=== PATIENT | female | born 1955 | race Caucasian/White ===

== ENCOUNTER 2020-10-21 12:35 | Emergency (ER) | payer MEDICARE, OTHER ==
--- NOTE | 2020-10-21 13:00 | EDM.PDOC ---
ED HPI GENERAL MEDICAL PROBLEM - General Chief Complaint: Neuro Symptoms/Deficits Stated Complaint: LIGHT HEADED, HIGH BP Time Seen by Provider: 10/21/20 13:00 Source of Information: Reports: Patient History Limitations: Reports: No Limitations - History of Present Illness INITIAL COMMENTS - FREE TEXT/NARRATIVE: 65-year-old female who reports that she awoke this morning around 8:00 and she felt somewhat dizzy and lightheaded when she got up. It seemed to be somewhat worse when she changed position and when she was walking. She reports that there was no room spinning to the dizziness but she just felt wobbly and unsteady. She reports that she could walk but she just felt off. There was no nausea or vomiting. There were no fevers or chills. She had no chest pain. There was no near syncope. She has been eating and drinking normally. There have been no fevers or chills. No nasal congestion. No ear pain. She did develop a dull ache in the top of her head that she would rated as a 3/10. It has been constant. That began at approximately 10 AM. She states that she does have a history of migraines and this headache is "no migraine". Around lunch, she was still feeling the symptoms and she had her son who was a basic responder check her blood pressure and her blood pressure was 170/80 and her son told her that she needed to come to the emergency department for evaluation. She has had no shortness of breath. There have been no sweats. She has had no dysuria or hematuria. She has been eating and drinking normally. She has no neck stiffness. She has had no localized area of weakness or numbness. No cough or sore throat. There are no other associated signs or symptoms. There are no other modifying factors. Onset: Today Duration: Constant (A.m.) Location: Reports: Head Quality: Reports: Ache, Dull Severity: Mild Improves with: Reports: Rest Worsens with: Reports: Other (Activity), Movement Context: Reports: Other (As above. She had no symptoms when she went to bed last night and she awoke with the symptoms today.) Associated Symptoms: Reports: Headaches Treatments [employer]: Reports: Other (see below) (Nothing.) - Related Data Allergies Allergy/AdvReac Type Severity Reaction Status Date / Time No Known Allergies Allergy Verified 10/21/20 12:51 Home Meds: Home Meds SUMAtriptan [Imitrex] 50 mg PO ASDIRECTED PRN 09/28/13 [History] Ascorbic Acid [Vitamin C] 1,000 mg PO DAILY 10/21/20 [History] Cholecalciferol (Vitamin D3) [Vitamin D3] 2,000 unit PO DAILY 10/21/20 [History] Meclizine [Antivert] 25 mg PO Q6H PRN #16 tab 10/21/20 [Rx] Multivitamin [Daily Multiple Vitamin] 1 each PO DAILY 10/21/20 [History] amLODIPine [Norvasc] 5 mg PO DAILY #30 tab 10/21/20 [Rx] Past Medical History Neurological History: Reports: Migraines - Past Surgical History GI Surgical History: Reports: Colonoscopy Female Surgical History: Reports: Hysterectomy Endocrine Surgical History: Reports: Thyroidectomy (Partial thyroidectomy) Oncologic Surgical History: Reports: Biopsy of Breast (Several breast biopsies) Social & Family History - Tobacco Use Tobacco Use Status *Q: Former Tobacco User (Quit smoking 50 years ago) - Alcohol Use Alcohol Use History: Yes Alcohol Use Frequency: Socially (She has an occasional glass of wine.) - Living Situation & Occupation Occupation: Retired ED ROS GENERAL - Review of Systems Review Of Systems: See Below Constitutional: Reports: No Symptoms HEENT: Reports: No Symptoms Respiratory: Reports: No Symptoms Cardiovascular: Reports: Lightheadedness Endocrine: Reports: No Symptoms GI/Abdominal: Reports: No Symptoms Musculoskeletal: Reports: No Symptoms Skin: Reports: No Symptoms Neurological: Reports: Dizziness Psychiatric: Reports: No Symptoms Hematologic/Lymphatic: Reports: No Symptoms Immunologic: Reports: No Symptoms ED EXAM, DIZZINESS - Physical Exam Exam: See Below Exam Limited By: No Limitations General Appearance: Alert, WD/WN, No Apparent Distress Eye Exam: Bilateral Eye: EOMI (No nystagmus), Normal Inspection (Sclera are anicteric), PERRL Ears: Normal External Exam, Hearing Grossly Normal Nose: Normal Inspection, Normal Mucosa, No Blood Throat/Mouth: Normal Inspection, Normal Lips, Normal Oropharynx, Normal Voice, No Airway Compromise Head Exam: Atraumatic, Normocephalic Neck: Normal Inspection, Supple, Non-Tender, Full Range of Motion Respiratory/Chest: No Respiratory Distress, Lungs Clear, Normal Breath Sounds, No Accessory Muscle Use, Chest Non-Tender Cardiovascular: Normal Peripheral Pulses, Regular Rate, Rhythm, No Edema, No Murmur GI/Abdominal: Normal Bowel Sounds, Soft, Non-Tender, No Mass Neurological: Alert, Normal Mood/Affect, Normal Dorsiflexion, CN II-XII Intact, Normal Plantar Flexion, No Motor/Sensory Deficits, Oriented x 3, Other (No pronator drift. No dysmetria. Cranial nerves II through XII are intact.) Back Exam: Normal Inspection, Full Range of Motion Extremities: Normal Inspection, Normal Range of Motion, Non-Tender, No Pedal Edema, Normal Capillary Refill Psychiatric: Normal Affect Skin Exam: Warm, Dry, Intact, Normal Color, No Rash #1 Interpretation EKG Date: 10/21/20 Time: 12:44 Rhythm: NSR (80) Rate (Beats/Min): 80 [place]: Normal P-Wave: Present QRS: Normal ST-T: Normal QT: Prolonged (Prolonged QTc) Comparison: NA - No Prior EKG Course - Vital Signs Last Recorded V/S: Last Vital Signs Temp 36.4 C 10/21/20 12:35 Pulse 73 10/21/20 12:35 Resp 18 10/21/20 12:35 BP 156/84 H 10/21/20 16:11 Pulse Ox 99 10/21/20 12:35 - Orders/Labs/Meds Orders: Active Orders 24 hr Category Date Time Status EKG Documentation Completion [RC] ASDIRECTED Care 10/21/20 13:21 Active Orthostatic Vital Signs [RC] ONETIME Care 10/21/20 13:22 Active Head wo Cont [CT] Stat Exams 10/21/20 13:20 Taken EKG 12 Lead [EK] Routine Ther 10/21/20 13:20 Ordered Labs: Laboratory Tests 10/21/20 10/21/20 10/21/20 Range/Units 12:55 12:55 12:55 WBC 6.0 (3.0-10.3) x10-3/uL RBC 4.59 (3.60-5.20) x10(6)uL Hgb 13.0 (11.4-15.5) g/dL Hct 39.6 (34.2-48.2) % MCV 86.4 (76.7-100.5) fL MCH 28.3 (23.9-33.9) pg MCHC 32.8 (31.9-34.8) g/dL RDW 13.7 (12.3-16.5) % Plt Count 217 (151-488) x10(3)uL MPV 8.8 (7.1-12.4) fL Neut % (Auto) 65.6 (30.8-76.2) % Lymph % (Auto) 25.0 (18.4-52.1) % [place] % (Auto) 7.7 (4.4-15.7) % Eos % (Auto) 0.6 (0.6-8.1) % Baso % (Auto) 1.1 (0.2-1.5) % Neut # (Auto) 3.9 (1.5-6.3) x10-3/uL Lymph # (Auto) 1.5 (1.0-4.4) x10-3/uL [place] # (Auto) 0.5 (0.3-1.0) x10-3/uL Eos # (Auto) 0.0 (0.0-0.8) x10-3/uL Baso # (Auto) 0.1 (0.0-0.1) x10-3/uL ESR 21 H (0-20) mm/hr Sodium 142 (135-145) mmol/L Potassium 3.8 (3.5-5.3) mmol/L Chloride 102 (100-110) mmol/L Carbon Dioxide 28 (21-32) mmol/L BUN 12 (7-18) mg/dL Creatinine 0.9 (0.55-1.02) mg/dL Est Cr Clr Drug Dosing 59.79 mL/min Estimated GFR (MDRD) > 60 (>60) BUN/Creatinine Ratio 13.3 (9-20) Glucose 96 (80-116) mg/dL Calcium 9.5 (8.6-10.2) mg/dL Magnesium 2.0 (1.8-2.5) mg/dL Total Bilirubin 0.4 (0.1-1.3) mg/dL AST 20 (5-25) IU/L ALT 25 (12-36) U/L Alkaline Phosphatase 74 (56-112) IU/L Troponin I 7.5 (4.0-60.3) pg/mL Total Protein 7.9 (6.0-8.0) g/dL Albumin 4.0 (3.2-4.6) g/dL Globulin 3.9 g/dL Albumin/Globulin Ratio 1.0 Urine Color (YELLOW) Urine Appearance (CLEAR) Urine pH (5.0-6.5) Ur Specific [place] (1.010-1.025) Urine Protein (NEGATIVE) mg/dL Urine Glucose (UA) (NORMAL) mg/dL Urine Ketones (NEGATIVE) mg/dL Urine Occult Blood (NEGATIVE) Urine Nitrite (NEGATIVE) Urine Bilirubin (NEGATIVE) Urine Urobilinogen (NEGATIVE) mg/dL Ur Leukocyte Esterase (NEGATIVE) Urine WBC (0-5) Ur Squamous Epith Cells (NS,R,O) Urine Bacteria (NS) 10/21/20 Range/Units 13:35 WBC (3.0-10.3) x10-3/uL RBC (3.60-5.20) x10(6)uL Hgb (11.4-15.5) g/dL Hct (34.2-48.2) % MCV (76.7-100.5) fL MCH (23.9-33.9) pg MCHC (31.9-34.8) g/dL RDW (12.3-16.5) % Plt Count (151-488) x10(3)uL MPV (7.1-12.4) fL Neut % (Auto) (30.8-76.2) % Lymph % (Auto) (18.4-52.1) % [place] % (Auto) (4.4-15.7) % Eos % (Auto) (0.6-8.1) % Baso % (Auto) (0.2-1.5) % Neut # (Auto) (1.5-6.3) x10-3/uL Lymph # (Auto) (1.0-4.4) x10-3/uL [place] # (Auto) (0.3-1.0) x10-3/uL Eos # (Auto) (0.0-0.8) x10-3/uL Baso # (Auto) (0.0-0.1) x10-3/uL ESR (0-20) mm/hr Sodium (135-145) mmol/L Potassium (3.5-5.3) mmol/L Chloride (100-110) mmol/L Carbon Dioxide (21-32) mmol/L BUN (7-18) mg/dL Creatinine (0.55-1.02) mg/dL Est Cr Clr Drug Dosing mL/min Estimated GFR (MDRD) (>60) BUN/Creatinine Ratio (9-20) Glucose (80-116) mg/dL Calcium (8.6-10.2) mg/dL Magnesium (1.8-2.5) mg/dL Total Bilirubin (0.1-1.3) mg/dL AST (5-25) IU/L ALT (12-36) U/L Alkaline Phosphatase (56-112) IU/L Troponin I (4.0-60.3) pg/mL Total Protein (6.0-8.0) g/dL Albumin (3.2-4.6) g/dL Globulin g/dL Albumin/Globulin Ratio Urine Color Yellow (YELLOW) Urine Appearance Clear (CLEAR) Urine pH 6.0 (5.0-6.5) Ur Specific [place] 1.015 (1.010-1.025) Urine Protein Negative (NEGATIVE) mg/dL Urine Glucose (UA) Normal (NORMAL) mg/dL Urine Ketones Negative (NEGATIVE) mg/dL Urine Occult Blood Negative (NEGATIVE) Urine Nitrite Negative (NEGATIVE) Urine Bilirubin Negative (NEGATIVE) Urine Urobilinogen Normal (NEGATIVE) mg/dL Ur Leukocyte Esterase Negative (NEGATIVE) Urine WBC 0-5 (0-5) Ur Squamous Epith Cells Occasional (NS,R,O) Urine Bacteria Few H (NS) Meds: Medications Discontinued Medications Generic Name Dose Route Start Last Admin Trade Name Nevin PRN Reason Stop Dose Admin Amlodipine Besylate 5 mg 10/21/20 15:44 10/21/20 16:11 Norvasc PO 10/21/20 15:45 5 mg ONETIME ONE Administration Meclizine HCl 25 mg 10/21/20 15:38 10/21/20 16:11 Antivert PO 10/21/20 15:39 25 mg ONETIME ONE Administration - Radiology Interpretation Free Text/Narrative:: CT scan of the head showed no acute abnormality per the [facility] radiologist. - Re-Assessments/Exams Free Text/Narrative Re-Assessment/Exam: 10/21/20 15:40: All of the patient's blood tests are reassuringly normal. Her EKG was reassuringly normal. Her urinalysis was normal. The CT scan of her head was normal as well. Her has been maintaining in the 150 systolic range over 80- 90's systolic range. She states that she really feels no different from her presentation. She still feels unsteady and somewhat dizzy. As a headache that is on the top of her head that she would rate as 4/10. I will the patient meclizine 25 mg by mouth and I will also give her amlodipine 5 mg by mouth and we will continue close observation for now. He is continuing to be neurologically stable without any concerning signs or symptoms. 10/21/20 17:00: Patient's repeat blood pressure after the amlodipine and meclizine is 119/70. She feels tired but when she sat up she had no more dizziness. Her headache is still there at about 4/10 level. She does not want anything for the headache now. She remains neurologically with no deficits. The plan will be to discharge the patient on amlodipine 5 mg daily. I will also give her prescription of meclizine 25 mg she is to have her blood pressure taken by her son every day and keep a record of it and then she should follow-up with her primary doctor this coming week. She should take her blood pressure record with her. Precautions and reasons for return to the emergency department were discussed with the patient while she was in the emergency department and were detailed in her discharge instructions. The patient does feel comfortable with the plan for discharge. Departure - Departure Time of Disposition: 17:10 Disposition: Home, Self-Care 01 Condition: Good (Improved) Clinical Impression: Dizziness Hypertension Qualifiers: Hypertension type: unspecified Qualified Code(s): I10 - Essential (primary) hypertension Headache Qualifiers: Headache type: unspecified Headache chronicity pattern: acute headache Intractability: not intractable Qualified Code(s): R51.9 - Headache, unspecified - Discharge Information Prescriptions: Meclizine [Antivert] 25 mg PO Q6H PRN #16 tab PRN Reason: Dizziness amLODIPine [Norvasc] 5 mg PO DAILY #30 tab Instructions: Hypertension, Adult, [id number], General Headache Without Cause, [id number], Dizziness, [id number] Referrals: Angeles Wade [employer] [Primary Care Provider] - Forms: ED Department Discharge Additional Instructions: Your blood tests were all reassuringly normal. Your urine test showed no evidence of infection. Your EKG was reassuringly normal. The CT scan of your head was also reassuringly normal. It have an elevated blood pressure consistently while you were in the emergency department until you were treated with the antihypertensive (amlodipine 5 mg). You also seemed to improve after the anti-dizziness medication that you were given (meclizine). I have given you prescriptions of both of these. You should take the amlodipine every day and you should also have your blood pressure checked every day and keep a record of it. You should plan on following up with your primary doctor this coming week for recheck. Use the meclizine as needed for dizziness. Increase your fluid intake. Back to the emergency department for marked increase in headache, localized area of weakness or numbness, unrelenting vomiting, fever, vision or speech problems or any other concerning sign or symptom. Sepsis Event Note (ED) - Evaluation Sepsis Screening Result: No Definite Risk - Focused Exam Vital Signs: Vital Signs Temp Pulse Resp BP BP Pulse Ox 10/21/20 16:11 156/84 H 10/21/20 12:35 36.4 C 73 18 185/85 H 99 - My Orders Last 24 Hours: My Active Orders 10/21/20 13:20 Head wo Cont [CT] Stat EKG 12 Lead [EK] Routine 10/21/20 13:21 EKG Documentation Completion [RC] ASDIRECTED 10/21/20 13:22 Orthostatic Vital Signs [RC] ONETIME - Assessment/Plan Last 24 Hours: My Active Orders 10/21/20 13:20 Head wo Cont [CT] Stat EKG 12 Lead [EK] Routine 10/21/20 13:21 EKG Documentation Completion [RC] ASDIRECTED 10/21/20 13:22 Orthostatic Vital Signs [RC] ONETIME
[2020-10-21] MEDS ORDERED: Meclizine 25 MG Tab PO ONE (15:38)
[2020-10-21] MEDS ORDERED: amLODIPine 5 MG Tab PO ONE (15:44)
== END 2020-10-21 17:33 | disposition home or self-care (01) ==
LOC: FB.ED 12:35
DX: I10 Essential (primary) hypertension (principal); Z87.891 Personal history of nicotine dependence; Z79.899 Other long term (current) drug therapy
CPT/HCPCS: 36415; 70450; 80053; 81001; 83735; 84484; 85025; 85651; 93005; 99283; 99284; A9270